=== PATIENT | female | born 1980 | race Caucasian/White ===

== ENCOUNTER 2017-11-12 19:58 | Emergency (ER) | payer SELFPAY | END 2017-11-12 21:11 | disposition home or self-care (01) | LOC: ER 21:11 | DX: L25.9 Unspecified contact dermatitis, unspecified cause (principal); Z98.51 Tubal ligation status; Z88.0 Allergy status to penicillin; Z90.49 Acquired absence of other specified parts of digestive tract | CPT/HCPCS: 99283 ==